=== PATIENT | female | born 1945 | race Caucasian/White ===

== ENCOUNTER 2025-01-16 20:03 | Inpatient (IN) | payer BC, MEDICARE ==
[~2025-01-16] VITALS: Ht 160 cm; Wt 54.0 kg
--- NOTE | 2025-01-16 20:16 | Physician Documentation ---
History of Present Illness ~ Chief Complaint: ALOC Stated Complaint: ALOC Time Seen by MD: 20:10 Primary Medical Doctor: KANE VAN 79-year-old female, history of dementia, presenting with altered mental status Per EMS, the patient arrives from a care facility. She has been acting less responsive than normal throughout the day. She reportedly had a fever. Family stated that she had similar symptoms in the past related to a urinary tract infection. Unable to obtain any history from the patient due to her dementia and clinical condition Medication Reconciliation Allergies: Coded Allergies: Sulfa (Sulfonamide Antibiotics) (Verified Allergy, Unknown, 01/16/25) Past Medical History Past Medical History: No Pertinent History Review of Systems Unable to obtain complete ROS: altered mental status, dementia Physical Exam Vital Signs: Temperature: 100.3, Source: Oral, Heart Rate: 106, Respiratory Rate: 18, BP: 136/41, Pulse Oximetry: 97, Weight: 54.000 Physical Exam General: This is a frail-appearing elderly woman HEENT: Atraumatic, pupils are 3 mm and equal, oropharynx appears dry Heart: Mild tachycardic, appears regular. Systolic murmur present Lungs: Clear breath sounds bilateral, slightly increased respiratory rate, normal oxygen saturation on room air Abdomen: Soft, nondistended, no reaction to palpation of the abdomen, no guarding or pain response Extremities: Pitting edema to both ankles and feet with some chronic appearing skin changes Progress Results/Orders Results/Orders Orders - OLGA LIDIA MORAN MD Culture Blood (01/16/25 20:13) Chest,Single View (01/16/25 20:13) Straight Cath For Urine Sample (01/16/25 20:13) Cult Urine + [address] Ct (01/16/25 20:38) Page Hospitalist (01/16/25 21:13) Completed Orders - OLGA LIDIA MORAN MD Electrocardiogram (01/16/25 20:13) Cbc/Diff (01/16/25 20:13) MG (01/16/25 20:13) Chest,Single View (01/16/25 20:13) Procalcitonin (01/16/25 20:13) BMP (01/16/25 20:13) Lacticsepsis (01/16/25 20:13) Ua W/Microscopic, Cult If Ind (9/27/25 20:25) Ceftriaxone/U3q-Enqwccbl 1gm (Rocephin 1 (01/16/25 21:15) Medications Received in ER Medications (Trade) Dose Ordered Sig/[place] Route PRN Reason Start Time Stop Time Status Last Admin Dose Admin Ceftriaxone Sodium 50 ml @ 100 mls/hr ONCE ONCE IV 01/16/25 21:15 01/16/25 21:44 DC 01/16/25 21:54 100 MLS/HR Vital Signs 01/16/25 01/16/25 01/16/25 20:08 20:33 20:41 Temp 100.3 Pulse 106 108 Resp 18 16 18 B/P (MAP) 136/41 118/94 (102) Pulse Ox 97 99 Laboratory Tests Test 01/16/25 20:25 01/16/25 20:37 01/16/25 20:46 Urine Specimen Description Non-specified Urine Color Yellow Urine Clarity Clear Urine pH 6.0 Urine Specific [place] 1.015 Urine Protein Negative Urine Glucose (UA) Negative Urine Ketones Negative Urine Occult Blood Small Urine Nitrite Positive H Urine Bilirubin Negative Urine Urobilinogen 0.2 Urine Leukocyte Esterase Large H Urine RBC 3-10 Urine WBC Tntc H Urine Squamous Epithelial Cells None seen Urine Bacteria 4+ Urine Culture Indicated Indicated Volume Urine Centrifuged 10 ml Urine Comment White Blood Count 16.7 H Red Blood Count 3.08 L Hemoglobin 9.1 L Hematocrit 27.5 L Mean Corpuscular Volume 89.3 Mean Corpuscular Hemoglobin 29.4 Mean Corpuscular Hemoglobin Concent 33.0 Red Cell Distribution Width 13.9 Platelet Count 185 Mean Platelet Volume 9.0 Neutrophils (%) (Auto) 86.7 H Lymphocytes (%) (Auto) 6.4 L Monocytes (%) (Auto) 5.8 Eosinophils (%) (Auto) 0.5 Basophils (%) (Auto) 0.6 Neutrophils # (Auto) 14.5 H Lymphocytes # (Auto) 1.1 Monocytes # (Auto) 1.0 H Eosinophils # (Auto) 0.1 Basophils # (Auto) 0.1 CBC Comment Lactic Acid Level 0.6 Procalcitonin 0.05 Sodium Level 138 Potassium Level 4.4 Chloride Level 104 Carbon Dioxide Level 27.1 Anion Gap 7 L Blood Urea Nitrogen 33 H Creatinine 0.99 H Estimated GFR/1.73 m2 54 BUN/Creatinine Ratio 33.3 H Glucose Level 116 H Calcium Level 8.7 Magnesium Level 1.9 Albumin 3.3 L Chemistry Comments Microbiology Date/Time Source Procedure Growth Status 01/16/25 20:38 Urine Nonspecified Urine Culture - Preliminary Culture received. Resulted EKG/XRAY/CT/US/VASC/MRI Chest X-Ray : Additional Comments I personally interpreted the x-ray, and it shows: No focal consolidation, pneumothorax or pulmonary edema Consults/PCP Consults/PCP : Additional Comment Consult: I spoke to the internal medicine service, for admission in the hospital Medical Decision Making Differential Dx:Considerations: Include: dehydration, encephalopathy, hypo glycemia, hyponatremia, encephalopathy, medication toxicity, infection - sepsis, infection - UTI, renal failure Additional Information Patient presents with altered mental status and a reported fever. Her presentation is concerning for possible infection including UTI. On exam she does not have any significant respiratory findings to suggest pneumonia. She h as a benign abdominal exam. Labs returned with a leukocytosis and urinalysis is consistent with urinary tract infection has suspected. She was given IV antibiotics. Lactate is normal, no evidence of sepsis. She will be admitted to the medicine service. Departure Impression: Primary Impression: Altered mental status Additional Impression: UTI (urinary tract infection) Referrals: NO PRIMARY CARE PROVIDER (PCP) Signature Scribe Signature: na Attestation: OLGA LIDIA Jalloh MD Jan 16, 2025 20:16
--- NOTE | 2025-01-16 20:25 | ELECTROCARDIOGRAPH REPORT ---
[facility] Test Date: 2025-01-16 Test Time: 20:23:52 Pat Name: EDIS RAMSEY Department: [facility]- Patient ID: [facility]-[id number] Room: [place] [address] Gender: F First Assistant: : 1945 Requested By: OLGA LIDIA MORAN Order Number: [id number] Reading MD: Dr. Jules Fitzpatrick Measurements Intervals [place] Rate: 106 P: 58 OK: 171 QRS: 186 QRSD: 102 T: 47 QT: 338 QTc: 449 Interpretive Statements Sinus tachycardia Atrial premature complex Probable left atrial enlargement Right axis deviation Baseline wander in lead(s) V1 Electronically Signed On 01-21-2025 21:46:[address] Jules Fitzpatrick Please click the below link to view image of tracing.
[2025-01-16 20:32] LABS: LEUKOCYTE ESTERASE ,URINE LARGE (Neg); NITRITES, URINE POSITIVE (Neg); OCCULT BLOOD,URINE SMALL (Neg)
[2025-01-16 20:33] LABS: UA COLLECTION TYPE NON-SPECIFIED
[2025-01-16 20:37] LABS: SQUAMOUS EPITHELIAL CELL,UR NONE SEEN /LPF (FEW)
[2025-01-16 21:05] LABS: MEAN PLATELET VOLUME 9.0 FL (7.4-10.4); RED CELL DISTRIBUTION WIDTH 13.9 % (11.5-14.5)
[2025-01-16 21:12] LABS: CREATININE 0.99 MG/DL (0.40-0.90); TOTAL CARBON DIOXIDE 27.1 MMOL/L (24-32); eCRCL 39 ML/MIN; eGFR 54 ML/MIN
[2025-01-16] MEDS: CefTRIAXone/D5W-Rocephin 1gm 50 ML IV ONE (21:54)
--- NOTE | 2025-01-16 22:09 | RADIOLOGY REPORT ---
EXAM: DI CHEST,SINGLE VIEW CLINICAL HISTORY: SEPSIS TECHNIQUE: Single AP view of the chest WID: COMPARISON: None FINDINGS: Lines and tubes: None Chest: The heart size and pulmonary vasculature is within normal limits. Calcified plaque projects over the aortic arch. No pleural effusion, pneumothorax, or consolidation. The osseous structures are grossly intact. There are bilateral breast implants with calcification of the capsules. IMPRESSION: 1. No acute cardiopulmonary abnormality.
[2025-01-16] MEDS ORDERED: potassium Cl 20 mEq SR tablet PO PRN ×2 (22:30)
[2025-01-16] MEDS ORDERED: potassium Cl 40MEQ/1/2NS 520ml 520 ML IV PRN (22:30)
[2025-01-16] MEDS ORDERED: magnesium hydroxide 30ml (MOM) UD suspension PO PRN (22:30)
[2025-01-16] MEDS ORDERED: magnesium sulf-water 4G/100mL 100 ML IV PRN (22:30)
[2025-01-16] MEDS ORDERED: ondansetron/PF 4mg/2ml inj IV PRN (22:30)
[2025-01-16] MEDS ORDERED: magnesium Cl slow-release 64mg tablet PO PRN (22:30)
[2025-01-16] MEDS ORDERED: mag hydrox/Alum hydrox/simeth 30ml oral suspension PO PRN (22:30)
[2025-01-16] MEDS ORDERED: magnesium sulf-water 2g/50mL 50 ML IV PRN (22:30)
[2025-01-16 23:03] LABS: PRO BRAIN NATRIURETIC PEPTIDE 402 PG/ML (0-450)
--- NOTE | 2025-01-16 23:04 | HISTORY AND PHYSICAL-Residence ---
History & Physical Providers to CC Resident Creating Document: RADHA MANRIQUE RES ~ History of Present Illness Primary Medical Doctor: KANE Reason for Admit\Complaint: Acute encephalopathy History of Present Illness The 79 year female was brought in by EMS from [facility] with a chief concern increasing lethargy, decreased mentation and bilateral lower extremity swelling. Patient opens eyes spontaneously and also says words but does not form any meaningful sentences. She also is pushing away hand when trying to examine. She is not able to understand any question and give any meaningful answers or follow commands. So, I called her daughter Ms. Kourtney Palacios at [phone] who is the POA. All the information is acquired from the patient's daughter. She mentioned that the patient was joined in [facility] in November this year. She was living by herself with caregivers before that. Stated that her memory issues were declining over 7-8 years and she currently is on donepezil and sees neurologist at [facility] office. The patient is also requiring assistance to get up from the bed and walks very slowly. Does not use any cane or a walker but is not very clear about patient's walking ability. Did not have any fall, dizziness, chest pain, shortness of breath, dysuria, abdominal pain and the patient usually does not complain anything. She wears pull-ups for urination bowel movements. She is able to move all her upper and lower extremities without any difficulty. Per the daughter, it is hard to take the patient into the shower and she usually wears soiled clothes. Patient does not like to be touched. She had three UTIs in the last one year but was not admitted. She was taken care by her boyfriend till an year back and her daughter thinks she had UTIs even in the past as well. Denies any renal stones or ureteral stent or using any self catheterization or Marcos catheter. She also developed bilateral lower extremity swelling and it gradually got worse in the last three weeks. Per the daughter, doctor at the rehab did a x-ray of the lower extremities which did not show any acute fracture or abnormality. The patient also had a temperature of 100.3 F in the ER. Patient is not actively vomiting and is not in any acute distress. Allergies: Coded Allergies: Sulfa (Sulfonamide Antibiotics) (Verified Allergy, Unknown, 01/16/25) Home Medications Home Medications Active Past Medical History Past Medical History Per records, Dementia, hypothyroidism, anxiety, hypotension Past Surgical History Surgical History Comment Per patient's daughter, bilateral breast implants and plastic surgery on face many years back - for skin Past Social History Social History Comment Information from her daughter, last smoke was about seven months back. Smoked one pack of cigarettes per day for five years before that in two packs per week for 30 years before that. Last alcoholic drink was two years back. Drank three vodka every night for 30 years. Denies abusing any other recreational drugs ROS ROS Patient is not alert and oriented and so could not perform any review of systems Unable to obtain: altered mental status, dementia Exam Vitals: Vital Signs Date Time Temp Pulse Resp B/P (MAP) Pulse Ox O2 Delivery O2 Flow Rate FiO2 01/16/25 22:28 98 15 156/87 (110) 97 01/16/25 20:08 100.3 General: Awake but disoriented. Patient not allowing to touch and examine by pushing away hands HEENT: Normocephalic and atraumatic. Pupils equal round reactive to light. Extraocular movements intact. Oral and nasal mucosa moist Neck: Trachea is in midline. No masses or JVD Chest: Bilateral normal breath sounds. No crackles, rhonchi or wheezes Cardiovascular: Regular rate and rhythm. S1-S2 normal. Systolic murmur in the aortic and pulmonary area. Holosystolic murmur in the tricuspid area. Patient not allowing me to auscultate mitral area Abdomen: Soft, nontender nondistended. Bowel sounds present Extremities: Bilateral 2+ pedal edema till above ankle. Warmth and mildly erythematous. Bilateral 1+ dorsalis pedal pulse-likely due to edema and bilateral 2+ posterior tibial pulse Central Nervous System: Patient not understanding and following commands. So, could not perform neurological examination. Able to move all her four extremities without any difficulty. Able to spontaneously open eyes, says words but can not form a meaningful sentence Skin: Warm and dry apart from above-mentioned changes Diagnostic Data Last Recorded Lab Results: 01/16/25203601/16/252045 Advance Care Planning Advanced Care plannin - 30 Minutes Additional Plan Acute metabolic encephalopathy - likely due to UTI Has a underlying dementia Sepsis secondary to UTI Temperature 100.3 F-given Tylenol 650 mg p.o. once Elevated WBC WBC, tachycardic Urinalysis showed positive nitrite, large leukocyte esterase, too numerous to count WBC, 4+ bacteria Urine culture and blood culture ordered Procalcitonin negative. Lactic acid normal Received Rocephin 1 g IV in the ER Started Rocephin 2 g IV daily Started normal saline at 100 cc/hour Head CT showed no acute intracranial abnormality Chest x-ray hyperinflated with no acute cardiopulmonary abnormality Continue Tylenol 650 mg p.o. q.6h p.r.n. for fever Aspiration and fall precautions in place NPO until passes bedside swallow eval and then continue regular diet Pending PT evaluation Possible bilateral lower extremity cellulitis Edema could be due to poor mobility as well No significant erythema but warm to touch. But, patient also had fever Ordered bilateral venous ultrasound Continue Rocephin 2 g IV daily Normocytic normochromic anemia HGB 9.1 and hematocrit 27.5 No previous hemoglobin level available Iron studies ordered Possible underlying CKD Continue IV fluids Hypertension Has a amlodipine 5 mg and losartan 25 mg p.o. daily at home Started amlodipine 10 mg p.o. daily Hypothyroidism TSH ordered Continue home medication levothyroxine 25 mcg p.o. daily Dementia Continue home medication donepezil 5 mg p.o. daily DVT prophylaxis: Heparin 5000 units subcutaneous q.12h Diet: NPO until passes bedside swallow eval and then continue regular diet Radha Manrique MD Internal Medicine Resident, PGY 3 Patient evaluated using HIPPA complaint AV device Agree with plans as discussed with the resident Dany Randall MD Date of Service: Jan 17, 2025 Billing Provider: DANY RANDALL MD, MANOJNA RES Jan 16, 2025 23:04 DANY RANDALL MD Jan 17, 2025 03:41
--- NOTE | 2025-01-16 23:26 | RADIOLOGY REPORT ---
EXAM: CT CT HEAD INDICATION: acute encephalopathy TECHNIQUE: CT of the head without intravenous contrast. Radiation Dose Information: CT Dose: CTDI volume is 48.77 mGy. Dose-length product is 1014.82 mGy*cm The dose indicators for CT are the volume Computed Tomography (CT) Dose Index (CTDIvol) and the Dose Length Product (DLP), and are measured in units of mGy and mGy-cm, respectively. These indicators are not patient dose, but values generated from the CT scanner acquisition factors. The report includes radiation exposure data for exposures received during this examination. COMPARISON: None FINDINGS: There is no evidence of acute intracranial hemorrhage, extra-axial collection, mass effect, midline shift, herniation or hydrocephalus. The ventricles, sulci and cisterns are age appropriate. The bruno-white differentiation is intact. Patchy periventricular and subcortical white matter hypoattenuation is nonspecific but may be related to small vessel ischemic disease. The visualized paranasal sinuses and mastoid air cells are clear. The surrounding soft tissues and osseous structures are unremarkable. IMPRESSION: No acute intracranial abnormality.
[2025-01-16] MEDS: normal saline 1000ml 1,000 ML IV SCH (23:33)
[2025-01-17] VITALS (7 sets, daily range): BP systolic 137–153; BP diastolic 39–69; PULSE 50–92; RESP 13–18; TEMP 97.7–98.2; O2SAT 92–97
[2025-01-17 06:03] LABS: MEAN PLATELET VOLUME 9.5 FL (7.4-10.4); RED CELL DISTRIBUTION WIDTH 14.1 % (11.5-14.5)
[2025-01-17 06:18] LABS: APTT 29 SECONDS (22-32); INR 1.1 INR
[2025-01-17 07:00] LABS: CHOL/HDL RATIO 2.7 (0.00-4.99); CREATININE 0.84 MG/DL (0.40-0.90); LDL CHOLESTEROL 100 MG/DL (50-100); PHOSPHORUS 3.5 MG/DL (2.3-4.5); TOTAL CARBON DIOXIDE 25.2 MMOL/L (24-32); eCRCL 46 ML/MIN; eGFR 66 ML/MIN
[2025-01-17 07:52] LABS: % IRON SATURATION 8 % (11-46)
[2025-01-17] MEDS: K and/or MAG REPLACEMENT MC SCH (08:00)
[2025-01-17] MEDS: levoTHYROXINE 25mcg tablet PO SCH (08:26)
[2025-01-17] MEDS: donepezil 5mg tablet PO SCH (08:26)
[2025-01-17] MEDS: heparin, porcine 5000 units/ml vial SQ SCH (08:28)
[2025-01-17] MEDS ORDERED: diazepam inj 5 MG/ML inj. IV PRN ×2 (09:35→14:25)
[2025-01-17] MEDS: diazepam inj 5 MG/ML inj. IV ONE ×3 (10:22→14:25)
--- NOTE | 2025-01-17 11:33 | VASCULAR REPORT ---
BILATERAL LOWER EXTREMITY VENOUS DUPLEX REASON FOR EXAMINATION: Bilateral lower extremity pain and edema. COMPARISON: None TECHNIQUE: Using real-time freeze-frame technique with a high-frequency transducer, multiple longitudinal and transverse sections were obtained. Simultaneous color flow and spectral Doppler imaging was performed. FINDINGS: There is good visualization of the deep venous system with no intraluminal filling defects identified. Normal venous compressibility is seen and there is flow augmentation. Color flow Doppler imaging is unremarkable. IMPRESSION: NO EVIDENCE OF DEEP VENOUS THROMBOSIS.
[2025-01-17] MEDS: haloperidol lactate 5mg/ml inj IM ONE (14:42)
--- NOTE | 2025-01-17 16:24 | PROGRESS NOTE ---
Daily Progress Note Providers to CC ~ had an episode of agitation today otherwise no nausea vomiting diarrhea constipation tolerate medication fine Central Line/PICC still needed: No Marcos-Non Protocol Marcos Indications Met/Not Met: F/C Indications Not Met Antibiotic Timeout Antibiotic Ordered?: Yes MRSA Education MRSA Education Provided to pt: Yes Subjective As above Objective Vital Signs Date Time Temp Pulse Resp B/P (MAP) Pulse Ox O2 Delivery O2 Flow Rate FiO2 01/17/25 14:31 92 153/69 (97) 96 Room Air 01/17/25 11:42 14 01/17/25 08:00 0.0 01/17/25 06:00 97.9 Vital signs, stable ,afebrile. Pulse Oximetry reflects adequate oxygenation. General: well developed, well nourished. Awake , alert, and oriented x4, resting comfortably in the bed, in no acute distress . Skin: Warm, dry, no pallor, no rash or petechiae. HEENT: Atraumatic, normocephalic, EOMI, anicteric sclera B; pink conjunctiva; PERRLA, normal oropharynx, moist oral and nasal mucosa. Tympanic membrane , nose , throat clear. Neck: Trachea midline. Supple, full range of motion, no JVD, bruit , hepatojugular reflex , lymphadenopathy or masses, or other lesions Cardiac: Regular rhythm, regular rate no murmurs, rubs, or gallops. Normal S1 and S2, no S3 noticed. PMI is normal. Respiratory: Equal breath sounds bilaterally, no tachypnea; lungs clear to auscultation bilaterally, no wheezing ,rub or rales, or crackles. Chest wall is symmetric and without deformity. No signs of trauma. Chest wall is nontender. No signs of respiratory distress. Resonance is normal upon percussion bilaterally. Gastrointestinal: Abdomen symmetric, non-distended, soft, non-tender, normal bowel sounds x4 quadrant, normoactive, no hepatosplenomegaly , no masses , no bruit, no flank pain bilaterally. No voluntary guarding, rebound, or rigidity. No tenderness to percussion. No pulsatile masses. Equal femoral pulses. No Kelley's sign or McBurney point tenderness. Back; no CVA tenderness bilaterally, no deformities. Neck and back are without deformity as well. No tenderness noted on palpation of the spinous processes. Spinous processes are midline. Cervical, thoracic, and lumbar paraspinal muscles are not tender and are without spasm. : Not indicated Musculoskeletal: Extremities, normal range of motion, non-tender, muscle strength 5/5 x 4. Negative Homans signs bilaterally on lower extremity. Distal pulses full symmetrical, no clubbing, cyanosis , edema. Neurological: Speech is clear, alert, and oriented x 4. No motor or sensory deficit, deep tendon reflexes normal, cerebellar intact. Cranial nerves II-XII intact. Psych: Alert and or appropriate, normal affect. Vascular: Good distal pulses, which are equal x4; capillary refill less than 2 seconds. Lymphatic, no lymphadenopathy. Result Diagram: 01/17/255 01/17/25444 Coagulation Studies Laboratory Tests Test 01/17/25 04:45 Prothrombin Time 10.9 SECONDS (9.0-12.0) INR International Normalized Ratio 1.1 INR Activated Partial Thromboplast Time 29 SECONDS (22-32) Coagulation Comments Problem\Assessment\Plan Assessment/ Plan Complicated UTI Acute metabolic encephalopathy Agitated dementia Sepsis secondary to UTI Temperature 100.3 F-given Tylenol 650 mg p.o. once Elevated WBC WBC, tachycardic Urinalysis showed positive nitrite, large leukocyte esterase, too numerous to count WBC, 4+ bacteria Urine culture and blood culture ordered Procalcitonin negative. Lactic acid normal Received Rocephin 1 g IV in the ER Started Rocephin 2 g IV daily Started normal saline at 100 cc/hour Head CT showed no acute intracranial abnormality Chest x-ray hyperinflated with no acute cardiopulmonary abnormality Continue Tylenol 650 mg p.o. q.6h p.r.n. for fever Aspiration and fall precautions in place NPO until passes bedside swallow eval and then continue regular diet Pending PT evaluation Bilateral lower extremity edema Edema could be due to poor mobility as well No significant erythema but warm to touch. But, patient also had fever Ordered bilateral venous ultrasound Continue Rocephin 2 g IV daily Normocytic normochromic anemia HGB 9.1 and hematocrit 27.5 No previous hemoglobin level available Iron studies ordered Possible underlying CKD Continue IV fluids Hypertension Has a amlodipine 5 mg and losartan 25 mg p.o. daily at home Started amlodipine 10 mg p.o. daily Hypothyroidism TSH ordered Continue home medication levothyroxine 25 mcg p.o. daily Dementia Continue home medication donepezil 5 mg p.o. daily DVT prophylaxis: Heparin 5000 units subcutaneous q.12h Diet: NPO until passes bedside swallow eval and then continue regular diet Sepsis Screening Reassessment Date: Jan 17, 2025 Date of Service: Jan 17, 2025 Billing Provider: ESTRELLITA QUILES MD Common Visit Codes: [id number] INP/OBS CARE(HIGH) ESTRELLITA QUILES MD Jan 17, 2025 16:24
[2025-01-17] MEDS: CefTRIAXone 2gm/D5W 50ml BAG 50 ML IV SCH (20:10)
[2025-01-18 06:00] VITALS: BP 157/60; PULSE 91; RESP 17; TEMP 97.8; O2SAT 92
[2025-01-18 06:22] LABS: MEAN PLATELET VOLUME 11.1 FL (7.4-10.4); RED CELL DISTRIBUTION WIDTH 13.7 % (11.5-14.5)
[2025-01-18 06:39] LABS: APTT 31 SECONDS (22-32); INR 1.1 INR
[2025-01-18 07:14] LABS: CREATININE 0.86 MG/DL (0.40-0.90); PHOSPHORUS 3.5 MG/DL (2.3-4.5); TOTAL CARBON DIOXIDE 25.4 MMOL/L (24-32); eCRCL 45 ML/MIN; eGFR 64 ML/MIN
[2025-01-18 10:00] VITALS: BP 148/62; PULSE 92; RESP 14; TEMP 97.9; O2SAT 95
[2025-01-18 18:00] VITALS: BP 148/65; PULSE 91; RESP 13; TEMP 98.1; O2SAT 98
--- NOTE | 2025-01-18 18:08 | PROGRESS NOTE ---
Daily Progress Note Providers to CC ~ had an episode of agitation today Central Line/PICC still needed: No Marcos-Non Protocol Marcos Indications Met/Not Met: F/C Indications Not Met Antibiotic Timeout Antibiotic Ordered?: Yes MRSA Education MRSA Education Provided to pt: Yes Subjective As above Objective Vital Signs Date Time Temp Pulse Resp B/P (MAP) Pulse Ox O2 Delivery O2 Flow Rate FiO2 01/18/25 10:00 97.9 92 14 148/62 (90) 95 Room Air 01/17/25 08:00 0.0 Vital signs, stable ,afebrile. Pulse Oximetry reflects adequate oxygenation. General: well developed, well nourished. Awake , alert, and oriented x4, resting comfortably in the bed, in no acute distress . Skin: Warm, dry, no pallor, no rash or petechiae. HEENT: Atraumatic, normocephalic, EOMI, anicteric sclera B; pink conjunctiva; PERRLA, normal oropharynx, moist oral and nasal mucosa. Tympanic membrane , nose , throat clear. Neck: Trachea midline. Supple, full range of motion, no JVD, bruit , hepatojugular reflex , lymphadenopathy or masses, or other lesions Cardiac: Regular rhythm, regular rate no murmurs, rubs, or gallops. Normal S1 and S2, no S3 noticed. PMI is normal. Respiratory: Equal breath sounds bilaterally, no tachypnea; lungs clear to auscultation bilaterally, no wheezing ,rub or rales, or crackles. Chest wall is symmetric and without deformity. No signs of trauma. Chest wall is nontender. No signs of respiratory distress. Resonance is normal upon percussion bilaterally. Gastrointestinal: Abdomen symmetric, non-distended, soft, non-tender, normal bowel sounds x4 quadrant, normoactive, no hepatosplenomegaly , no masses , no bruit, no flank pain bilaterally. No voluntary guarding, rebound, or rigidity. No tenderness to percussion. No pulsatile masses. Equal femoral pulses. No Kelley's sign or McBurney point tenderness. Back; no CVA tenderness bilaterally, no deformities. Neck and back are without deformity as well. No tenderness noted on palpation of the spinous processes. Spinous processes are midline. Cervical, thoracic, and lumbar paraspinal muscles are not tender and are without spasm. : Not indicated Musculoskeletal: Extremities, normal range of motion, non-tender, muscle strength 5/5 x 4. Negative Homans signs bilaterally on lower extremity. Distal pulses full symmetrical, no clubbing, cyanosis , edema. Neurological: Speech is clear, alert, and oriented x 4. No motor or sensory deficit, deep tendon reflexes normal, cerebellar intact. Cranial nerves II-XII intact. Psych: Alert and or appropriate, normal affect. Vascular: Good distal pulses, which are equal x4; capillary refill less than 2 seconds. Lymphatic, no lymphadenopathy. Result Diagram: 01/18/2552101/18/25521 Coagulation Studies Laboratory Tests Test 01/18/25 05:22 Prothrombin Time 10.9 SECONDS (9.0-12.0) INR International Normalized Ratio 1.1 INR Activated Partial Thromboplast Time 31 SECONDS (22-32) Coagulation Comments Problem\Assessment\Plan Assessment/ Plan Complicated UTI Acute metabolic encephalopathy Agitated dementia Sepsis secondary to UTI Temperature 100.3 F-given Tylenol 650 mg p.o. once Elevated WBC WBC, tachycardic Urinalysis showed positive nitrite, large leukocyte esterase, too numerous to count WBC, 4+ bacteria Urine culture and blood culture ordered Procalcitonin negative. Lactic acid normal Received Rocephin 1 g IV in the ER Started Rocephin 2 g IV daily Started normal saline at 100 cc/hour Head CT showed no acute intracranial abnormality Chest x-ray hyperinflated with no acute cardiopulmonary abnormality Continue Tylenol 650 mg p.o. q.6h p.r.n. for fever Aspiration and fall precautions in place NPO until passes bedside swallow eval and then continue regular diet Pending PT evaluation Bilateral lower extremity edema Edema could be due to poor mobility as well No significant erythema but warm to touch. But, patient also had fever Ordered bilateral venous ultrasound Continue Rocephin 2 g IV daily Normocytic normochromic anemia HGB 9.1 and hematocrit 27.5 No previous hemoglobin level available Iron studies ordered Possible underlying CKD Continue IV fluids Hypertension Has a amlodipine 5 mg and losartan 25 mg p.o. daily at home Started amlodipine 10 mg p.o. daily Hypothyroidism TSH ordered Continue home medication levothyroxine 25 mcg p.o. daily Agitated Dementia Continue home medication donepezil 5 mg p.o. daily, on sedatives DVT prophylaxis: Heparin 5000 units subcutaneous q.12h Diet: NPO until passes bedside swallow eval and then continue regular diet Sepsis Screening Reassessment Date: Jan 18, 2025 Date of Service: Jan 18, 2025 Billing Provider: ESTRELLITA QUILES MD Common Visit Codes: [id number] INP/OBS CARE(HIGH) ESTRELLITA QUILES MD Jan 18, 2025 18:08
[2025-01-18 22:00] VITALS: BP 133/83; PULSE 88; RESP 16; TEMP 98; O2SAT 96
[2025-01-19] MEDS ORDERED: LORA2ORA5 PO (01:49)
[2025-01-19] MEDS ORDERED: POLY17PO10 PO (01:49)
[2025-01-19] MEDS ORDERED: MIRT7.5T11 PO (01:49)
[2025-01-19] MEDS ORDERED: LEVO25CA5 PO (01:49)
[2025-01-19] MEDS ORDERED: DONE-46 PO (01:49)
[2025-01-19] MEDS ORDERED: OLAN5TAB75 PO (01:49)
[2025-01-19] MEDS ORDERED: MEMA5TAB15 PO (01:49)
[2025-01-19] MEDS ORDERED: OLAN2.5T77 PO (01:49)
[2025-01-19] MEDS ORDERED: LORA-268 PO (02:02)
[2025-01-19 05:15] LABS: MEAN PLATELET VOLUME 9.6 FL (7.4-10.4); RED CELL DISTRIBUTION WIDTH 13.6 % (11.5-14.5)
[2025-01-19 05:35] LABS: APTT 31 SECONDS (22-32); INR 1.1 INR
[2025-01-19 05:45] LABS: CREATININE 0.73 MG/DL (0.40-0.90); PHOSPHORUS 3.8 MG/DL (2.3-4.5); TOTAL CARBON DIOXIDE 24.9 MMOL/L (24-32); eCRCL 53 ML/MIN; eGFR 77 ML/MIN
[2025-01-19 06:00] VITALS: BP 132/69; PULSE 87; RESP 18; TEMP 97.2; O2SAT 97
[2025-01-19 10:00] VITALS: BP 141/91; PULSE 94; RESP 18; TEMP 98.5; O2SAT 97
[2025-01-19] MEDS ORDERED: CIPR-458 PO (10:08)
[2025-01-19] MEDS ORDERED: NOR5T PO (10:09)
--- NOTE | 2025-01-19 14:11 | DISCHARGE SUMMARY ---
Discharge Summary Providers to CC ~ Discharge Summary Admission Diagnosis: UTI, Metabolic encephalopathy, Sepsis Hospital Course DATE OF ADMISSION: 01/16/25 DATE OF DISCHARGE: 01/19/25 Discharge Diagnosis\\Comment: Complicated UTI Acute metabolic encephalopathy 2/2 UTI Sepsis secondary to UTI Bilateral lower extremity edema Anemia, normocytic Possible underlying CKD Hypertension Hypothyroidism Dementia Generalized weakness Operations\\Procedures: None Consultants: None Complications: None Condition on DC: Stable New Medications: Ciprofloxacin HCl (Ciprofloxacin HCl) 500 Mg Tab 1 TAB PO BID for 7 Days, #14 TAB Amlodipine Besylate (Amlodipine Besylate) 5 Mg Tablet 10 MG PO DAILY for 30 Days, #60 TAB Continued Medications: Donepezil Hcl (Donepezil Hcl) 5 Mg Tablet 1 TAB PO HS for 30 Days, #30 TAB 0 Refills Levothyroxine Sodium (Levothyroxine) 25 Mcg Capsule 1 CAP PO DAILY for 30 Days, #30 CAP 0 Refills Lorazepam (Ativan) 0.5 Mg Tablet 1 TAB PO BID PRN for agitation for 30 Days, #60 TAB 0 Refills Memantine HCl (Memantine HCl) 5 Mg Tablet 1 TAB PO DAILY for 30 Days, #60 TAB 0 Refills Mirtazapine (Mirtazapine) 7.5 Mg Tablet 1 TAB PO HS for 30 Days, #30 TAB 0 Refills Olanzapine (Olanzapine) 2.5 Mg Tablet 1 TAB PO HS for 30 Days, #30 TAB 0 Refills Olanzapine (Olanzapine) 5 Mg Tablet 1 TAB PO DAILY for 30 Days, #30 TAB 0 Refills Polyethylene Glycol 3350* (Miralax*) 1 Packet Packet 1 PKT PO DAILY for constipation, #30 PKT dissolve in water Discharge Summary: History of Present Illness From H&P: "79 year female was brought in by EMS from [facility] with a chief concern increasing lethargy, decreased mentation and bilateral lower extremity swelling. Patient opens eyes spontaneously and also says words but does not form any meaningful sentences. She also is pushing away hand when trying to examine. She is not able to understand any question and give any meaningful answers or follow commands. So, I called her daughter Ms. Kourntey Palacios at [phone] who is the POA. All the information is acquired from the patient's daughter. She mentioned that the patient was joined in [facility] in November this year. She was living by herself with caregivers before that. Stated that her memory issues were declining over 7-8 years and she currently is on donepezil and sees neurologist at [facility] office. The patient is also requiring assistance to get up from the bed and walks very slowly. Does not use any cane or a walker but is not very clear about patient's walking ability. Did not have any fall, dizziness, chest pain, shortness of breath, dysuria, abdominal pain and the patient usually does not complain anything. She wears pull-ups for urination bowel movements. She is able to move all her upper and lower extremities without any difficulty. Per the daughter, it is hard to take the patient into the shower and she usually wears soiled clothes. Patient does not like to be touched. She had three UTIs in the last one year but was not admitted. She was taken care by her boyfriend till an year back and her daughter thinks she had UTIs even in the past as well. Denies any renal stones or ureteral stent or using any self catheterization or Marcos catheter. She also developed bilateral lower extremity swelling and it gradually got worse in the last three weeks. Per the daughter, doctor at the rehab did a x-ray of the lower extremities which did not show any acute fracture or abnormality. The patient also had a temperature of 100.3 F in the ER. Patient is not actively vomiting and is not in any acute distress." Hospital Course Diagnostic findings were notable for urinalysis revealing urinary tract inf ection and findings of sepsis. Pertinent negative findings were negative head CT, negative chest x-ray, normal lactic acid, negative procal. Patient was treated with intravenous fluids and empirical antibiotics. Patient did not experience further complications throughout the entire hospital stay and remained clinically and hemodynamically stable. On day of discharge, vss and labs unremarkable. Urine culture resulted positive for E coli. Preliminary blood culture remains negative until the day of discharge. Renal US negative hydronephrosis. Patient was seen and examined on the day of discharge. Patient is to be discharged back to [facility]. Physical Exam General: Generalized weakness, demented, NAD HEENT: Normocephalic, PERRLA Neck: Supple, trachea midline, no JVD Chest: Clear to auscultation bilaterally Cardiovascular: RRR, S1&S2 GI: Soft and nontender Extremities: No cyanosis/clubbing/or edema COMMERCIAL ESTIMATOR: CN II-XII intact, no focal deficits Musculoskeletal: No paraspinal muscle tenderness, no muscle spasm Skin: Warm and intact *Problems/Diagnosis: (1) UTI (urinary tract infection) Status: Acute (2) Altered mental status Status: Acute Total Time Spent on D/C: > 30 Minutes Date of Service: Jan 19, 2025 Billing Provider: THAI LÓPEZ Common Visit Codes: 49667-OJM/OBS DISCH DAY >30min THAI LÓPEZ Jan 19, 2025 14:10
--- NOTE | 2025-01-19 14:42 | RADIOLOGY REPORT ---
CLINICAL HISTORY: betty, uti TECHNIQUE: Complete ultrasound exam of the kidneys and bladder was performed. COMPARISON: None FINDINGS: The left kidney is partially obscured due to overlying bowel gas. The right kidney has normal echogenicity and measures 8.9 cm. There is no focal parenchymal abnormality or evidence for stone. There is no hydronephrosis. The left kidney has normal echogenicity and measures 8.5 cm. There is no focal parenchymal abnormality or evidence for stone. There is no hydronephrosis. The bladder is distended with a volume of 592 mL. IMPRESSION: Limited exam with no significant sonographic abnormality of the kidneys. Distended urinary bladder with volume of 592 mL.
[2025-01-19] MEDS ORDERED: LidoCAINE 2% Topical Jelly 11mL syringe (UROJET) TOP ONE (15:35)
== END 2025-01-19 16:35 | disposition home or self-care (01) | DRG 871 ==
LOC: ER 20:03 → ED HOLD 22:32 → ORTHO 4S 01-17 02:30
PROVIDERS: ADMIT Internal Medicine; ATTEND Family Medicine
DX: A41.9 Sepsis, unspecified organism (principal); G93.41 Metabolic encephalopathy; N39.0 Urinary tract infection, site not specified; F03.911 Unspecified dementia, unspecified severity, with agitation; Z66 Do not resuscitate; E03.9 Hypothyroidism, unspecified; I12.9 Hypertensive chronic kidney disease with stage 1 through stage 4 chronic kidney disease, or unspecified chronic kidney disease; F41.9 Anxiety disorder, unspecified; N18.9 Chronic kidney disease, unspecified; D64.9 Anemia, unspecified; Z88.2 Allergy status to sulfonamides; Z88.0 Allergy status to penicillin
CPT/HCPCS: 36415; 70450; 71045; 76770; 80048; 80053; 80061; 81001; 82728; 83036; 83540; 83550; 83605; 83735; 83880; 84100; 84145; 84443; 85025; 85610; 85730; 87040; 87077; 87081; 87088; 87186; 93005; 93970; 96365; 97110; 97116; 97162; 97530; 99285; A6449; C1758; G0378; J0696; J1630; J1644; J3360; J7030

== ENCOUNTER 2025-01-20 07:18 | Emergency (ER) | payer MEDICARE ==
[~2025-01-20] VITALS: Ht 152.4 cm; Wt 54.0 kg
[~2025-01-20 07:18] MED LIST: CIPR-458 PO; DONE-46 PO; LEVO25CA5 PO; LORA-268 PO; MEMA5TAB15 PO; MIRT7.5T11 PO; NOR5T PO; OLAN2.5T77 PO; OLAN5TAB75 PO; POLY17PO10 PO
--- NOTE | 2025-01-20 08:25 | RADIOLOGY REPORT ---
EXAM: CT CT HEAD INDICATION: FALL TECHNIQUE: CT of the head without intravenous contrast. Radiation Dose : 1. Head: CT Dose: CTDI volume is 50.2 mGy. Dose-length product is 922.5 mGy*cm The dose indicators for CT are the volume Computed Tomography (CT) Dose Index (CTDIvol) and the Dose Length Product (DLP), and are measured in units of mGy and mGy-cm, respectively. These indicators are not patient dose, but values generated from the CT scanner acquisition factors. The report includes radiation exposure data for exposures received during this examination. COMPARISON: CT CT CERVICAL SPINE on DOS: 01/20/25, CT CT HEAD on DOS: 01/16/25 FINDINGS: There is no evidence of acute intracranial hemorrhage, extra-axial collection, mass effect, midline shift, herniation or hydrocephalus. The ventricles, sulci and cisterns are age appropriate. The bruno-white differentiation is intact. Patchy periventricular and subcortical white matter hypoattenuation is nonspecific but may be related to small vessel ischemic disease. The visualized paranasal sinuses and mastoid air cells are clear. The surrounding soft tissues and osseous structures are unremarkable. IMPRESSION: No acute intracranial abnormality. Radiation optimization: All CT scans at this facility use at least one of these dose optimization techniques: automated exposure control mA and/or kV adjustment per patient size (includes targeted exams where dose is matched to clinical indication) or iterative reconstruction.
--- NOTE | 2025-01-20 08:30 | RADIOLOGY REPORT ---
EXAM: CT CT CERVICAL SPINE INDICATION: FALL EXAM DATE: 01/20/2025 07:45 AM COMPARISON: CT CT HEAD on DOS: 01/20/25, CT CT HEAD on DOS: 01/16/25 TECHNIQUE: Multiple axial CT images of the cervical spine were obtained using bone algorithm. Sagittal and coronal reformatting was done. Bone and soft tissue windows were reviewed. Radiation Dose Information: CT Dose: CTDI volume is 12.2 mGy. Dose-length product is 214.7 mGy*cm FINDINGS: The cervical alignment is intact. No acute cervical spine fracture is identified. The vertebral body heights are intact. No suspicious osseous lesions are identified. Multilevel intervertebral disc space narrowing. Spinal stenosis at C5-C6 and C6-C7 due to posterior osteophytes. Multilevel neural foraminal stenosis particularly at C5-C6. There is no prevertebral soft tissue swelling. The lung apices are clear. IMPRESSION: 1. No evidence of acute cervical spine fracture or traumatic malalignment. 2. Multilevel degenerative changes of the cervical spine.
--- NOTE | 2025-01-20 08:45 | Physician Documentation ---
History of Present Illness ~ Chief Complaint: Mechanical Fall Stated Complaint: FALL Time Seen by MD: 07:26 Primary Medical Doctor: KANE Mode of Arrival: EMS HPI 79-year-old female patient with a history of dementia, hypertension, hypothyroidism, depression on medication was brought to the emergency room from the facility after a fall. The patient was put on cervical collar. The patient is not on blood thinner. Patient is not able to give any answer because of her dementia. The patient does not appear to be in any distress. Tetanus within 5 Years?: No Medication Reconciliation Allergies: Coded Allergies: Penicillins (Verified Allergy, Unknown, 01/20/25) Scheduled Amlodipine Besylate (Amlodipine Besylate), 10 MG PO DAILY Ciprofloxacin HCl (Ciprofloxacin HCl), 1 TAB PO BID Donepezil Hcl (Donepezil Hcl), 1 TAB PO HS, (Reported) Levothyroxine Sodium (Levothyroxine), 1 CAP PO DAILY, (Reported) Memantine HCl (Memantine HCl), 1 TAB PO DAILY, (Reported) Mirtazapine (Mirtazapine), 1 TAB PO HS, (Reported) Olanzapine (Olanzapine), 1 TAB PO HS, (Reported) Olanzapine (Olanzapine), 1 TAB PO DAILY, (Reported) Polyethylene Glycol 3350* (Miralax*), 1 PKT PO DAILY, (Reported) Scheduled PRN Lorazepam (Ativan), 1 TAB PO BID PRN for agitation, (Reported) Discontinued Medications Lorazepam (Lorazepam), 0.25 ML PO BID PRN for agitation, (Reported) Discontinued Reason: wrong med Past Medical History Past Medical History: No Pertinent History Patient History: Patient reports no known family medical history. Review of Systems Constitutional As stated above in the HPI, otherwise all systems are reviewed and negative. Physical Exam Vital Signs: Source: Temporal, Heart Rate: 90, Respiratory Rate: 16, BP: 120/55, Pulse Oximetry: 97, Weight: 54.000 Physical Exam Reviewed vital signs and they are well within normal range. Const: Awake alert but not able to answer any questions. Head: Atraumatic Eyes: Normal Conjunctiva ENT: Normal External Ears, Nose and Mouth. Moist mucous membranes Neck: Full range of motion. No meningismus Resp: Clear to auscultation bilaterally. Normal work of breathing Cardio: Regular rate and rhythm, no murmurs. Skin well perfused Abd: Soft, non-tender, non-distended. Normal bowel sounds. No rebound or guarding Skin: No petechiae or rashes. Warm and dry Back: No midline or flank tenderness Ext: No cyanosis, or edema Neuro: Awake and alert, no focal neurological deficit. Unable to assess her orientation because of her dense dementia. Psych: Normal Mood and Affect Progress Results/Orders Results/Orders Orders - DESIREE DOVER MD Ct Head (01/20/25 08:04) Ct Cervical Spine (01/20/25 08:04) Completed Orders - DESIREE DOVER MD Ct Head (01/20/25 08:04) Ct Cervical Spine (01/20/25 08:04) Vital Signs 01/20/25 01/20/25 07:20 09:18 Pulse 90 78 Resp 16 16 B/P (MAP) 120/55 149/75 (99) Pulse Ox 97 95 Medical Decision Making Findings ER Course/Med. Decision Making REVIEW of RECORD(S): Previous medical records here and/or external medical records, such as that provided directly by the patient, by EMS and/or outside medical facilities, if available, were reviewed. COMORBIDITIES dementia, hypertension, depression MDM During the physical examination, the findings suggestive of acute life- threatening condition such as JVD, tracheal deviation, acidotic breathing, noisy stridorous breath sounds, pulses paradoxus, muffled heart sounds, unequal breath sounds, abdominal rigidity and rebound tenderness, focal neurological deficits, cool clammy skin, severe hypotension, severe tachycardia or bradycardia are absent. Patient presenting for for assessment after injuries secondary to fall.. Vital signs reviewed. Patient is hemodynamically stable and does not meet SIRS criteria. Patient appears nontoxic on exam. Physical examination shows no focal deficit. TREATMENT/DISPOSITION: The patient's presentation is most consistent with contusion and minor concussion. Prior to discharge I independently reviewed the patients past medical history, clinical risk factors, comorbidities, and social determinants of health and diagnostic studies. The patient appears to be a safe discharge home with close outpatient PCP follow-up I had extensive discussion with patient regarding management, disposition and follow up. Potential symptom etiology was discussed, and shared decision making occurred. They will return immediately if symptoms worsen, do not improve, or they have any further concerns. Prior to discharge all questions were addressed. The patient is aware that the purpose of this visit was to screen for an acute medical emergency requiring emergent stabilization. Chronic and occult conditions, including malignancies, have not been ruled out. If patient is unable to arrange follow-up as stated in the discharge instructions and further discussed with the patient directly, or their symptoms worsen/become more concerning, they are to return to the ER for reassessment immediately. Prior to leaving the department, the patient has a plan for discharge, has decision making capacity, and acknowledges an understand ing of the verbal and written discharge instructions. SOCIAL DETERMINANTS: Patient demonstrates no obvious challenges to following up as an outpatient although did consider whether patient had any barriers to access care including homelessness, Food insecurity, Mental health, Substance abuse, Disabilities, Limited access to medical care, Difficulty finding transport, Insurance issues, Refusal of care or testing due to cost concerns. MEDICAL SCREENING: I have discussed with the patient the non-definitive nature of the emergency screening exam, diagnosis and the possibility of a variety of conditions which may present in atypically benign fashion and stressed the importance of close follow-up for definitive diagnosis and treatment. We discussed signs and symptoms that should be watched for which might indicate a more serious or new condition that would benefit from emergency reevaluation and the patient has verbalized understanding to this and my other detailed discharge instructions and promises compliance. I have referred him back to his primary physician of course for a more detailed evaluation and more definitive diagnoses. DISCLAIMER: Inadvertent spelling and grammatical errors are likely due to EMR/dictation software use and do not reflect on the overall quality of patient care. Note that the electronic time recorded on this note does not necessarily reflect the actual time of the patient encounter. Differential Dx:Considerations: Include: Closed head injury, Fracture(s), Cerebral contusion, Spine injury, Abrasion(s), Contusion(s), Hematoma(s), Laceration(s) Departure Disposition: 01 HOME / SELF CARE / HOMELESS Impression: Primary Impression: Contusion Additional Impression: Concussion Condition: Stable Discharge Instructions: Fall Prevention in the Home, Adult, [id number] Additional Instructions: Thank you for coming to our Emergency Department today. Please ask your nurse or provider if you have questions about your care today and do not leave until all your questions have been answered. Please use any medications given as directed and follow-up with your doctor (or the doctor you were referred to) in the next 1-3 days. Your primary care doctor can help to coordinate outpatient specialty care and provide authorization for specialty referral as needed. If you do not have a primary care doctor you may follow up at a [facility]. You may also use motrin and tylenol as needed for fever and/or pain unless instructed otherwise by your provider or nurse. Indications for more urgent follow-up have been discussed, but you may return to the Emergency Department at ANY time for any worrisome or worsening symptoms. County Facilities: County Facilities: [facility]: [facility] [place] Address:[address] [place] [address] [facility]: [place] Address:[facility] [place] [address] [facility]: [facility] Address:[address] [place] [address] [facility] Address:[address] [place] [address] Registration Billing Pharmacy Referrals [facility] Address:[address] [place] [address] Referrals: NO PRIMARY CARE PROVIDER (PCP) Signature Scribe Signature: No scribe Attestation: My dictation DESIREE DOVER MD Jan 20, 2025 08:45
[2025-01-20 09:18] VITALS: BP 149/75; PULSE 78; RESP 16; O2SAT 95
== END 2025-01-20 10:35 | disposition home or self-care (01) ==
LOC: ER 07:18
DX: S06.0XAA Concussion with loss of consciousness status unknown, initial encounter (principal); S00.83XA Contusion of other part of head, initial encounter; I10 Essential (primary) hypertension; E03.9 Hypothyroidism, unspecified; Z88.0 Allergy status to penicillin; Z79.899 Other long term (current) drug therapy; W18.30XA Fall on same level, unspecified, initial encounter; Y93.89 Activity, other specified; Y92.89 Other specified places as the place of occurrence of the external cause; Y99.8 Other external cause status
CPT/HCPCS: 70450; 72125; 99284